=== PATIENT | female | born 1985 | race Caucasian/White ===

== ENCOUNTER 2016-11-03 05:15 | Day surgery (SDC) | payer MEDICAID ==
[~2016-11-03] VITALS: Ht 162.6 cm; Wt 117.0 kg
[~2016-11-03 05:15] MED LIST: PROP20TA PO; SUCR1TAB26 PO; SUMA25TA4 PO
[2016-11-03] MEDS ORDERED: PROP40TA PO (06:17)
[2016-11-03] MEDS ORDERED: OMEP20TA62 PO (06:17)
[2016-11-03] MEDS ORDERED: CYCL-259 PO (06:17)
[2016-11-03 06:18] VITALS: BP 148/92
[2016-11-03] MEDS ORDERED: LACTATED RINGERS 1,000 ML IV SCH (06:24)
[2016-11-03] MEDS ORDERED: PROPOFOL 10 MG/ML, 50ML ONE (07:01)
[2016-11-03] MEDS ORDERED: DEXAMETHASONE 4 MG/ML, 1ML ONE (07:01)
[2016-11-03] MEDS ORDERED: ONDANSETRON 2MG/ML, 2ML ONE (07:01)
[2016-11-03] MEDS ORDERED: MEPERIDINE/PF 25MG/0.5ML IVPush PRN (07:30)
[2016-11-03] MEDS ORDERED: hydrALAzine 20 MG/ML, 1ML IV PRN (07:30)
[2016-11-03] MEDS ORDERED: ONDANSETRON 2MG/ML, 2ML IVPush PRN (07:30)
[2016-11-03] MEDS ORDERED: ACETAMINOPHEN 325 MG TABLET PO PRN (07:30)
[2016-11-03] MEDS ORDERED: HYDROmorphone 1 MG/ML, 1ML IV PRN (07:30)
[2016-11-03] MEDS ORDERED: FENTANYL PF 100 MCG/2ML IV PRN (07:30)
[2016-11-03] MEDS ORDERED: OXYcodone 5 MG/5 ML ORAL.SOL UDC PO PRN (07:30)
[2016-11-03] MEDS ORDERED: PROMETHAZINE 25 MG/ML, 1ML IV PRN (07:30)
[2016-11-03] MEDS ORDERED: LABETALOL 5MG/ML, 20ML IV PRN (07:30)
[2016-11-03] MEDS ORDERED: ALBUTEROL SULFATE 2.5 MG/3 ML NPPB PRN (07:30)
[2016-11-03] MEDS ORDERED: MIDAZOLAM 1 MG/ML, 2ML IV PRN (07:30)
== END 2016-11-03 08:45 | disposition home or self-care (01) ==
LOC: OUT 05:15
PROVIDERS: ATTEND Internal Medicine Gastroenterology
DX: K29.50 Unspecified chronic gastritis without bleeding (principal); K21.9 Gastro-esophageal reflux disease without esophagitis; I10 Essential (primary) hypertension; D50.9 Iron deficiency anemia, unspecified; G47.33 Obstructive sleep apnea (adult) (pediatric); E66.01 Morbid (severe) obesity due to excess calories; Z68.41 Body mass index [BMI] 40.0-44.9, adult
CPT/HCPCS: 43239; 88305; J1100; J2405; J2704; J7120

== ENCOUNTER 2017-04-06 20:09 | Emergency (ER) | payer MEDICAID, OTHER ==
[~2017-04-06] VITALS: Ht 160 cm; Wt 106.6 kg
[~2017-04-06 20:09] MED LIST changes: +CYCL-259 PO; +METO10TA82 PO; +OMEP20TA62 PO; +PROP40TA PO; -SUCR1TAB26 PO; +SUCR1TAB33 PO
[2017-04-06 20:14] VITALS: BP 138/92
[2017-04-06] MEDS ORDERED: KETOROLAC 30 MG/1 ML ONE (21:24)
[2017-04-06] MEDS ORDERED: CYCLOBENZAPRINE 10 MG TABLET ONE (21:26)
[2017-04-06] MEDS ORDERED: CYCLOBENZAPRINE 10 MG TABLET PO ONE (21:30)
[2017-04-06] MEDS ORDERED: KETOROLAC 30 MG/1 ML IM ONE (21:30)
== END 2017-04-06 22:41 | disposition home or self-care (01) ==
LOC: ED 22:31
DX: S29.9XXA Unspecified injury of thorax, initial encounter (principal); I10 Essential (primary) hypertension; V43.52XA Car driver injured in collision with other type car in traffic accident, initial encounter; Y93.89 Activity, other specified; Y92.410 Unspecified street and highway as the place of occurrence of the external cause; Y99.8 Other external cause status
CPT/HCPCS: 71010; 72020; 72050; 72072; 73060; 96372; 99284; J1885

== ENCOUNTER 2017-04-12 05:49 | Day surgery (SDC) | payer MEDICAID ==
[~2017-04-12] VITALS: Ht 162.6 cm; Wt 109.1 kg
[2017-04-12] MEDS ORDERED: SUCR1TAB PO (06:25)
[2017-04-12] MEDS ORDERED: METO10TA2 PO (06:25)
[2017-04-12] MEDS ORDERED: NORG1TAB29 PO (06:25)
[2017-04-12] MEDS ORDERED: LOSA50TA6 PO (06:25)
[2017-04-12] MEDS ORDERED: LACTATED RINGERS 1,000 ML IV SCH (06:25)
[2017-04-12] MEDS ORDERED: CITA20TA5 PO (06:25)
[2017-04-12] MEDS ORDERED: BUSP15TA PO (06:25)
[2017-04-12] MEDS ORDERED: PANT40TA5 PO (06:25)
[2017-04-12] MEDS ORDERED: MELA5TAB19 PO (06:25)
[2017-04-12 06:26] VITALS: BP 145/99
[2017-04-12 06:58] LABS: HCG UR LOT HCG7030192
[2017-04-12 07:03] LABS: HEMATOCRIT 38.6 % (34.6-47.8); WHITE BLOOD COUNT 6.2 x10^3/uL (3.4-10)
[2017-04-12 07:14] LABS: ASPARTATE AMINO TRANSFERASE 8 U/L (15-37); BLOOD UREA NITROGEN 8 mg/dL (7-18)
[2017-04-12 07:15] LABS: HCG UR OBC PASS
[2017-04-12] MEDS ORDERED: MIDAZOLAM 1 MG/ML, 2ML ONE (07:28)
[2017-04-12] MEDS ORDERED: FENTANYL PF 100 MCG/2ML ONE (07:29)
[2017-04-12] MEDS ORDERED: OXYcodone 5 MG/5 ML ORAL.SOL UDC PO PRN (08:00)
[2017-04-12] MEDS ORDERED: METOCLOPRAMIDE 5 MG/ML, 2ML IV PRN (08:00)
[2017-04-12] MEDS ORDERED: ONDANSETRON 2MG/ML, 2ML IVPush PRN (08:00)
[2017-04-12] MEDS ORDERED: FENTANYL PF 100 MCG/2ML IV PRN (08:00)
[2017-04-12] MEDS ORDERED: EPHEDRINE 50 MG/ML, 1ML IVPush PRN (08:00)
[2017-04-12] MEDS ORDERED: ALBUTEROL SULFATE 2.5 MG/3 ML NPPB PRN (08:00)
[2017-04-12] MEDS ORDERED: PROMETHAZINE 25 MG/ML, 1ML IV PRN (08:00)
[2017-04-12] MEDS ORDERED: MEPERIDINE/PF 25MG/0.5ML IVPush PRN (08:00)
[2017-04-12] MEDS ORDERED: METOPROLOL 1 MG/ML, 5ML IV PRN (08:00)
[2017-04-12] MEDS ORDERED: LABETALOL 5MG/ML, 20ML IV PRN (08:00)
[2017-04-12] MEDS ORDERED: hydrALAzine 20 MG/ML, 1ML IV PRN (08:00)
[2017-04-12] MEDS ORDERED: LORazepam 2 MG/ML, 1ML IVPush PRN (08:00)
[2017-04-12] MEDS ORDERED: HYDROmorphone 1 MG/ML, 1ML IV PRN (08:00)
[2017-04-12] MEDS ORDERED: HYDROcodone/APAP 7.5-325MG/15ML UDC PO PRN (08:00)
[2017-04-12] MEDS ORDERED: ACETAMINOPHEN 325 MG TABLET PO PRN (08:00)
[2017-04-12] MEDS ORDERED: SUCCINYLCHOLINE 20 MG/ML, 10ML ONE (16:16)
[2017-04-12] MEDS ORDERED: PROPOFOL 10 MG/ML, 20ML ONE (16:16)
[2017-04-12] MEDS ORDERED: ONDANSETRON 2MG/ML, 2ML ONE (16:16)
[2017-04-12] MEDS ORDERED: DEXAMETHASONE 4 MG/ML, 1ML ONE (16:16)
== END 2017-04-12 09:55 ==
LOC: OUT 05:49
PROVIDERS: ATTEND Internal Medicine Gastroenterology
DX: K29.50 Unspecified chronic gastritis without bleeding (principal); K31.84 Gastroparesis; E66.01 Morbid (severe) obesity due to excess calories; Z68.41 Body mass index [BMI] 40.0-44.9, adult
CPT/HCPCS: 36415; 43239; 80053; 81025; 85025; 88305; J0330; J1100; J2250; J2405; J2704; J3010; J7120

== ENCOUNTER 2018-07-08 09:34 | Emergency (ER) | payer MEDICAID ==
[~2018-07-08] VITALS: Ht 162.6 cm; Wt 118.0 kg
[~2018-07-08 09:34] MED LIST changes: +BUSP15TA PO; +CITA20TA6 PO; +LOSA50TA14 PO; +MELA5TAB19 PO; +METO10TA2 PO; +NORG1TAB29 PO; +PANT40TA5 PO; +SUCR1TAB PO
[2018-07-08] MEDS ORDERED: ALBUTEROL/IPRATROPIUM 2.5MG/0.5MG, 3 ML ONE ×3 (10:16→11:22)
[2018-07-08] MEDS: ALBUTEROL/IPRATROPIUM 2.5MG/0.5MG, 3 ML NPPB SCH (10:19)
[2018-07-08] MEDS ORDERED: ALBUTEROL/IPRATROPIUM 2.5MG/0.5MG, 3 ML NPPB ONE (11:30)
--- NOTE | 2018-07-08 11:45 | NUR ---
PT AMBULATORY WITH STEADY GAIT FOR ROAD TEST ON SPO2. PT SPO2 WHILE AMBULATING 94% AND GREATER. PT STATES SHE REMAINS SOB.
[2018-07-08 12:45] VITALS: BP 142/78
--- NOTE | 2018-07-08 12:46 | NUR ---
Patient/Caregiver given discharge instructions and they have confirmed that they understand the instructions. Patient ambulatory with steady gait. PT LEFT WITH ALL PERSONAL BELONGINGS.
== END 2018-07-08 12:54 | disposition home or self-care (01) ==
LOC: ED 10:16
DX: J20.8 Acute bronchitis due to other specified organisms (principal); R06.00 Dyspnea, unspecified; K21.9 Gastro-esophageal reflux disease without esophagitis; I10 Essential (primary) hypertension; J45.909 Unspecified asthma, uncomplicated
CPT/HCPCS: 71046; 93005; 94640; 99284; J7512; J7620

== ENCOUNTER 2018-07-09 23:41 | Inpatient (IN) | payer MEDICAID ==
[~2018-07-09] VITALS: Ht 162.6 cm; Wt 114.6 kg
[2018-07-10] MEDS ORDERED: MAGNESIUM SULFATE PMX 2GM/50ML 50 ML IVPB ONE (00:30)
[2018-07-10] MEDS ORDERED: ALBUTEROL/IPRATROPIUM 2.5MG/0.5MG, 3 ML ONE ×2 (00:40→02:28)
[2018-07-10 00:42] LABS: BASOPHILS # (AUTO) 0.01 x10^3/uL (0-0.1); BASOPHILS % (AUTO) 0 % (0-1); EOSINOPHILS # (AUTO) 0.01 x10^3/uL (0-0.4); EOSINOPHILS % (AUTO) 0 % (1-7); LYMPHOCYTES # (AUTO) 1.19 x10^3/uL (1-3.4); LYMPHOCYTES % (AUTO) 12 % (22-44); MD NO; MEAN CORPUSCULAR HEMOGLOBIN 22.5 pg (27.0-34.8); MEAN CORPUSCULAR HGB CONC 32.1 g/dL (32.4-35.8); MEAN PLATELET VOLUME 9.4 fL (7.4-10.4); MONOCYTES # (AUTO) 0.21 x10^3/uL (0.2-0.8); MONOCYTES % (AUTO) 2 % (2-9); NEUTROPHILS # (AUTO) 8.99 x10^3/uL (1.8-6.8); NEUTROPHILS % (AUTO) 86 % (42-75); PLATELET COUNT 344 x10^3/uL (130-400); RED BLOOD COUNT 5.34 x10^6/uL (3.82-5.3); RED CELL DISTRIBUTION WIDTH 17.8 % (9.6-15.2)
--- NOTE | 2018-07-10 00:48 | NUR ---
ATTEMPTED IV START, UNSUCCESSFUL X2
[2018-07-10] MEDS: ALBUTEROL/IPRATROPIUM 2.5MG/0.5MG, 3 ML NPPB SCH ×3 (00:51→02:34)
[2018-07-10 00:53] LABS: ALBUMIN 3.6 g/dL (3.4-5.0); ANION GAP 10 mmol/L (5-15); CALCIUM 8.7 mg/dL (8.5-10.1); CHLORIDE 105 mmol/L (98-107); CREATININE 0.87 mg/dL (0.55-1.02)
--- NOTE | 2018-07-10 00:56 | NUR ---
IV OBTAINED BY KACEY
--- NOTE | 2018-07-10 00:57 | NUR ---
PT SATING 88-89 ON RA, PUT ON O2 VIA NC AT 3L PER MIN
--- NOTE | 2018-07-10 02:14 | NUR ---
PT WALKED HALLS AND REMAINS AT 85% ON ROOM AIR, NOTIFIED
--- NOTE | 2018-07-10 02:52 | NUR ---
REPORT TO JAYLYN PT TO ROOM WITH TECH
[2018-07-10 03:09] VITALS: BP 131/77
[2018-07-10] MEDS ORDERED: ALBUTEROL SULFATE 2.5 MG/3 ML NPPB PRN (03:30)
[2018-07-10] MEDS: SODIUM CHLORIDE 0.9% 1,000 ML IV SCH ×2 (04:25→16:34)
[2018-07-10] MEDS ORDERED: ACETAMINOPHEN 325 MG TABLET PO PRN (04:30)
[2018-07-10] MEDS: ENOXAPARIN 40 MG/0.4 ML SQ SCH (05:58)
[2018-07-10] MEDS: ALBUTEROL SULFATE 2.5 MG/3 ML NPPB SCH ×4 (06:20→19:33)
[2018-07-10 07:00] VITALS: BP 107/75
[2018-07-10] MEDS: methylPREDNISolone SOD SUCC 40 MG/ML IVPush SCH ×2 (09:13→22:38)
[2018-07-10] MEDS: BUSPIRONE 5 MG TABLET PO SCH ×3 (09:14→22:39)
[2018-07-10] MEDS: CITALOPRAM 20 MG TABLET PO SCH (09:14)
[2018-07-10 13:48] VITALS: BP 156/91
[2018-07-10] MEDS: ONDANSETRON 4 MG TABLET PO PRN ×2 (14:08→22:37)
[2018-07-10 20:18] VITALS: BP 157/93
[2018-07-10] MEDS ORDERED: LOSARTAN 50MG TABLET PO SCH (21:00)
[2018-07-10] MEDS ORDERED: BUSPIRONE 10 MG TABLET ONE (22:32)
[2018-07-10] MEDS: DOXYCYCLINE 100MG TABLET PO SCH (22:37)
[2018-07-11 02:50] VITALS: BP 178/98
[2018-07-11] MEDS: ENOXAPARIN 40 MG/0.4 ML SQ SCH (06:23)
[2018-07-11] MEDS: SODIUM CHLORIDE 0.9% 1,000 ML IV SCH (06:24)
[2018-07-11 06:56] VITALS: BP 142/89
[2018-07-11] MEDS: ALBUTEROL SULFATE 2.5 MG/3 ML NPPB SCH ×4 (07:00→14:00)
[2018-07-11] MEDS: methylPREDNISolone SOD SUCC 40 MG/ML IVPush SCH (08:41)
[2018-07-11] MEDS: CITALOPRAM 20 MG TABLET PO SCH (08:41)
[2018-07-11] MEDS: DOXYCYCLINE 100MG TABLET PO SCH (08:41)
[2018-07-11] MEDS: BUSPIRONE 5 MG TABLET PO SCH ×2 (08:41→16:00)
[2018-07-11] MEDS ORDERED: PRED10TA PO (10:06)
[2018-07-11] MEDS ORDERED: ALBU2.5V NPPB (10:06)
[2018-07-11] MEDS ORDERED: DOXY100T PO ×2 (10:06)
[2018-07-11] MEDS ORDERED: DOXY100T10 PO (11:08)
[2018-07-11 13:26] VITALS: BP 145/83
[2018-07-11] MEDS: ONDANSETRON 4 MG TABLET PO PRN (13:47)
[2018-07-11 16:08] VITALS: BP 143/96
== END 2018-07-11 17:15 | disposition home or self-care (01) | DRG 189 ==
LOC: ED 07-10 00:48 → INTOOBSV 07-10 02:15 → EDIP 07-10 02:15 → 4NOR 07-10 03:04 → OBSVTOIN 07-10 14:00 → DCLOUNGE 07-11 16:47
PROVIDERS: ADMIT Hospitalist; ATTEND Hospitalist
PROC: 5A09357 Assistance with Respiratory Ventilation, Less than 24 Consecutive Hours, Continuous Positive Airway Pressure (ICD-10-PCS; principal; 2018-07-11)
DX: J96.01 Acute respiratory failure with hypoxia (principal); J45.52 Severe persistent asthma with status asthmaticus; Z68.41 Body mass index [BMI] 40.0-44.9, adult; D72.829 Elevated white blood cell count, unspecified; E66.01 Morbid (severe) obesity due to excess calories; G47.33 Obstructive sleep apnea (adult) (pediatric); I10 Essential (primary) hypertension; J40 Bronchitis, not specified as acute or chronic; K21.9 Gastro-esophageal reflux disease without esophagitis; Z87.891 Personal history of nicotine dependence; Z88.8 Allergy status to other drugs, medicaments and biological substances
CPT/HCPCS: 36415; 99285; J7613; J7620; 80048; 82040; 85025; 93005; 94640; 96365; G0378; J1650; Q0162; J2920; J3475